=== PATIENT | female | born 1965 | race Caucasian/White ===

== ENCOUNTER 2023-08-16 20:51 | Emergency (ER) | payer MEDICAID ==
[~2023-08-16] VITALS: Ht 157.5 cm; Wt 70.3 kg
[2023-08-16 21:01] VITALS: BP_SYST 133; PULSE 74; RESP 16; TEMP 97; O2SAT 97
[2023-08-16] MEDS: KETOROLAC TROMETHAMINE 60 MG/2 ML VIAL IM ONE (21:35)
[2023-08-16] MEDS ORDERED: METH-634 PO (21:52)
[2023-08-16] MEDS ORDERED: IBUP-1969 PO (21:52)
[2023-08-16 22:07] VITALS: BP_SYST 133; PULSE 74; RESP 16; TEMP 97; O2SAT 97
== END 2023-08-16 22:07 | disposition home or self-care (01) ==
LOC: SED 20:51
DX: M54.42 Lumbago with sciatica, left side (principal); Z91.018 Allergy to other foods
CPT/HCPCS: 99283; 72100; 96372; J1885